=== PATIENT | female | born 1955 | race Caucasian/White ===

== ENCOUNTER → 2020-12-30 | Outpatient (CLI) | payer MEDICARE, OTHER ==
[~2020-12-30] MED LIST: IBUPROFEN600 MG PO; NORCO 5-325 TA1 EACH PO; ZOFRAN4 MG PO
== END ==
LOC: KOH-I 13:45
DX: M50.322 Other cervical disc degeneration at C5-C6 level (principal); M50.122 Cervical disc disorder at C5-C6 level with radiculopathy
CPT/HCPCS: 72141

== ENCOUNTER → 2021-03-14 | Outpatient (CLI) | payer MEDICARE, OTHER | LOC: KOH-I 03-06 09:00 | DX: M54.6 Pain in thoracic spine (principal); D18.09 Hemangioma of other sites; R93.7 Abnormal findings on diagnostic imaging of other parts of musculoskeletal system | CPT/HCPCS: 72146; 72148 ==